=== PATIENT | male | born 1965 | race Hispanic/Latino ===

== ENCOUNTER 2018-09-08 10:51 | Day surgery (SDC) | payer OTHER ==
[~2018-09-08 10:51] MED LIST: ANCEF/STERILE WATER 2 GM/20 ML IV NR
--- NOTE | 2018-09-08 11:41 | Anesthesia Consultation ---
Anesthesia Consult and Med Hx Date of service: 09/08/18 - Airway Anesthetic Teeth Evaluation: Good ROM Head & Neck: Adequate Mental/Hyoid Distance: Adequate Mallampati Class: Class II Intubation Access Assessment: Possibly Difficult - Pulmonary Exam CTA: Yes - Cardiac Exam Cardiac Exam: RRR - Pre-Operative Health Status ASA Pre-Surgery Classification: ASA3 Proposed Anesthetic Plan: General - Pulmonary Hx Smoking: Yes (STOPPED X 30 YRS) Hx Asthma: No Hx Respiratory Symptoms: No COPD: No Hx Sleep Apnea: Yes (compliant with CPAP) - Cardiovascular System Hx Hypertension: No (takes lisinoprl for renal protection; last dose 09/07/18) Hx Heart Attack/AMI: No Hx Percutaneous Transluminal Coronary Angioplasty (PTCA): No Hx Cardia Arrhythmia: No - Central Nervous System Hx Seizures: No CVA: No Hx Back Pain: Yes (2/2 kidney stones) - Gastrointestinal Hx Gastroesophageal Reflux Disease: Yes (asymptomatic today) - Endocrine Hx Renal Disease: No Hx Liver Disease: Yes (fatty liver) Hx Insulin Dependent Diabetes: No Hx Non-Insulin Dependent Diabetes: Yes (last dose metformin 09/07/18) Hx Thyroid Disease: No - Other Systems Hx Obesity: Yes - Additional Comments Anesthesia Medical History Comments: No hx anesthetic complications.
--- NOTE | 2018-09-08 11:42 | Anesthesia Day of Surgery ---
Anesthesia Day of Surgery - Day of Surgery Patient Examined: Yes Patient H&P Reviewed: Yes Patient is NPO: Yes
[2018-09-08] MEDS ORDERED: LACTATED RINGERS 1,000 ML IV SCH (12:00)
[2018-09-08] MEDS ORDERED: VERSED IV NR (12:00)
[2018-09-08] MEDS ORDERED: XYLOCAINE MPF 2% ONE (12:59)
[2018-09-08] MEDS ORDERED: ZOFRAN ONE (12:59)
[2018-09-08] MEDS ORDERED: SUBLIMAZE ONE ×3 (12:59→14:06)
[2018-09-08] MEDS ORDERED: DIPRIVAN 10 MG/ML IV ONE (12:59)
[2018-09-08] MEDS ORDERED: DECADRON ONE (12:59)
[2018-09-08] MEDS ORDERED: OMNIPAQUE (300 MG) IR ONE (13:46)
[2018-09-08] MEDS ORDERED: WATER FOR IRRIG STERILE IR ONE (13:52)
--- NOTE | 2018-09-08 14:24 | Short Stay Summary ---
Short Stay Documentation Date of service: 09/08/18 - History H&P: obtained from office - Allergies and Medications Current Medications: Allergies No Known Allergies Allergy (Verified 09/07/18 11:55) Home Medications Medication Instructions Recorded Confirmed Last Taken Type AtorvaSTATin [Lipitor] 40 mg PO QHS 09/07/18 09/08/18 09/07/18 09:00 History Ciprofloxacin HCl [Cipro] 500 mg PO BID 09/07/18 09/07/18 Unknown History Cyanocobalamin (Vitamin B-12) 2,500 mcg PO DAILY 09/07/18 09/08/18 09/06/18 09:00 History [Vitamin B12] Flomax 0.4 mg PO DAILY 09/07/18 09/08/18 09/07/18 09:00 History Ketorolac [Toradol] 10 mg PO Q4HR PRN 09/07/18 09/08/18 09/05/18 09:00 History Lisinopril [Zestril] 10 mg PO DAILY 09/07/18 09/08/18 09/08/18 08:00 History Oxycodone HCl/Acetaminophen 1 each PO Q6HR PRN 09/07/18 09/08/18 09/07/18 14:00 History [Percocet 10/325 mg] glipiZIDE [Glipizide] 10 mg PO BID 09/07/18 09/08/18 09/07/18 09:00 History metFORMIN [Glucophage] 500 mg PO BID 09/07/18 09/08/18 09/07/18 09:00 History Active Medications Cefazolin Sodium (Ancef/Sterile Water 2 Gm/20 Ml) 2 gm IV PREOP NR Stop: 09/08/18 23:59 Fentanyl (Sublimaze) 50 mcg IV Q5MIN PRN PRN Reason: Pain , Severe (7-10) Stop: 09/08/18 18:00 Lactated Ringer's (Lactated Ringers) 1,000 mls @ 75 mls/hr IV DIRECT ALINE Last Admin: 09/08/18 11:45 Dose: 75 mls/hr Documented by: Midazolam HCl (Versed) 2 mg IV PREOP NR Stop: 09/08/18 23:59 - Brief post op/procedure progress note Date of procedure: 09/08/18 Pre-op diagnosis: rt mid ureteral stone Post-op diagnosis: other (impacted stone) Procedure: cysto, rt ureteroscopy stent, laser Anesthesia: GETA Surgeon: YAQUELIN KEATING Pathology: none Condition: stable - Hospital course Hospital course: cipro, percocet, postop info on chart - Disposition Condition at discharge: Stable Disposition: DC-01 TO HOME OR SELFCARE Short Stay Discharge Plan Follow up with: DR SUSIE [Other] - 7 Days
[2018-09-08] MEDS ORDERED: DILAUDID ONE (14:37)
[2018-09-08] MEDS ORDERED: PERCOCET 5/325 PO ONE (14:54)
[2018-09-08] MEDS: SUBLIMAZE IV PRN ×2 (15:00→15:27)
[2018-09-08 15:33] VITALS: BP 155/72
--- NOTE | 2018-09-08 16:01 | Post Anesthesia Evaluation ---
- Post Anesthesia Evaluation Patient Participated: Yes Airway Patent: Yes Stable Respiratory Function: Yes Nausea/Vomiting: No Temp > 96.8F: Yes Pain Manageable: Yes Adequeate Hydration: Yes Anesthesia Complications: No
--- NOTE | 2018-09-08 18:01 | Operative Report ---
PREOPERATIVE DIAGNOSIS: Right mid ureteral stone. POSTOPERATIVE DIAGNOSES: Right mid ureteral stone, right mid impacted ureteral stone. PROCEDURE: Cystoscopy, bilateral retrograde pyelograms, right rigid ureteroscopy, holmium laser lithotripsy, removal of small amounts of fragments, double-J stent placement (stage procedure). SURGEON: Jonatan Rodriguez MD ANESTHESIA: General. ESTIMATED BLOOD LOSS: Minimal. FLUIDS: Crystalloid. COMPLICATIONS: No complications. INDICATIONS: This patient is a 53-year-old gentleman seen in the office for right flank pain, has a history of diabetes and gout. He has a history of uric acid stones in the past and has undergone previous urologic procedures. We discussed options; due to his pain, he wanted to proceed with surgical intervention. DESCRIPTION OF PROCEDURE: The patient was taken to the operative suite, placed in a supine position. After adequate general anesthesia, placed in a dorsal lithotomy position, prepped and draped in a sterile fashion. Pancystourethroscopy was performed with a 22-[place]izen [place] Storz cystoscope, no urethral abnormalities. His prostate displayed some mild trilobar obstruction. Bladder, no tumors or stones were noted. Both ureteral orifices in normal position. Bilateral retrograde pyelograms were obtained with an 8 Citizen [place] Girard catheter and 8 mL of contrast. No filling defects or obstruction on the left. Right side had narrowing of the distal ureter, around the pelvic brim. There was dilation of ureter suggesting some type of abnormality. Two 0.035 Glidewires were placed. Rigid ureteroscopy was performed, significant edema could be appreciated. I was able to manipulate and see the yellow stone. Using a 200 micron holmium fiber starting at 4 german, lithotripsy was performed going up to 8 german with attempts to break the stone. There started to be some tedious bleeding and more edema, some of the fragments could be extracted, but it was clear. There was a residual large fragment that could not be removed. At this point, I felt it was prudent to stop. The ureteroscope was removed. A 6-[place]izen [place] 24 cm double-J stent with a short internal string was left indwelling. Bladder was drained. Rectal exam was benign. He was extubated and taken to the recovery room in stable condition. He has his antibiotics and pain medication. We will let him go home and stage this procedure, to come back in several weeks for reevaluation. JOB# [id number] DON/MIGUEL
--- NOTE | 2018-09-11 07:33 | Fluoroscopy Report ---
FLUOROSCOPY RETROGRADE UROGRAPHY: HISTORY: Right ureteral stone. FINDINGS: Fluoroscopy was provided by radiology during retrograde urography by the urologist. 9 fluoroscopic images were captured. Images demonstrate a large filling defect in a mid to distal right ureter near the level of S1 consistent with a stone. Subsequent images demonstrate right ureteral stent placement. The stone was removed with the use of a laser and basket per the operative note. Right ureteroscopy was performed. The left retrograde pyelogram was normal. IMPRESSION: Right ureteral stone removal. Right ureteral stent placement.
== END 2018-09-08 10:52 | disposition home or self-care (01) ==
LOC: OR 10:51
PROVIDERS: ATTEND Urology
DX: N20.1 Calculus of ureter (principal); G43.909 Migraine, unspecified, not intractable, without status migrainosus; E78.00 Pure hypercholesterolemia, unspecified; K21.9 Gastro-esophageal reflux disease without esophagitis; E11.9 Type 2 diabetes mellitus without complications; G47.33 Obstructive sleep apnea (adult) (pediatric); Z79.899 Other long term (current) drug therapy; E66.9 Obesity, unspecified; Z68.41 Body mass index [BMI] 40.0-44.9, adult; Z79.84 Long term (current) use of oral hypoglycemic drugs; Z87.891 Personal history of nicotine dependence
CPT/HCPCS: 52356; 74420; 82962; A4217; C1758; C1769; C2617; J0690; J1170; J2405; J2704; J3010; J7120; Q9967; J1100; J2250

== ENCOUNTER 2018-09-18 06:52 | Day surgery (SDC) | payer OTHER ==
[2018-09-18] MEDS ORDERED: PEPCID IV NR (07:40)
[2018-09-18] MEDS ORDERED: LACTATED RINGERS 1,000 ML IV SCH (07:41)
[2018-09-18] MEDS ORDERED: VERSED IV NR (08:00)
--- NOTE | 2018-09-18 08:52 | Anesthesia Consultation ---
Anesthesia Consult and Med Hx Date of service: 09/18/18 - Airway Anesthetic Teeth Evaluation: Good ROM Head & Neck: Adequate (has c5/c6 cervical spine pain; will follow-up with ortho but FROM with minimal discomfort) Mental/Hyoid Distance: Adequate Mallampati Class: Class III Intubation Access Assessment: Probably Good - Pulmonary Exam CTA: Yes - Cardiac Exam Cardiac Exam: RRR - Pre-Operative Health Status ASA Pre-Surgery Classification: ASA3 Proposed Anesthetic Plan: General - Pulmonary Hx Smoking: Yes (STOPPED X 30 YRS) Hx Asthma: No Hx Respiratory Symptoms: No COPD: No Hx Sleep Apnea: Yes (compliant with CPAP) - Cardiovascular System Hx Hypertension: No (takes lisinoprl for renal protection) Hx Heart Attack/AMI: No Hx Percutaneous Transluminal Coronary Angioplasty (PTCA): No Hx Cardia Arrhythmia: No - Central Nervous System Hx Seizures: No CVA: No Hx Back Pain: Yes (2/2 kidney stones) - Gastrointestinal Hx Gastroesophageal Reflux Disease: Yes (asymptomatic today) - Endocrine Hx Renal Disease: No Hx Liver Disease: Yes (fatty liver) Hx Insulin Dependent Diabetes: No Hx Non-Insulin Dependent Diabetes: Yes (last dose metformin 09/07/18) Hx Thyroid Disease: No - Other Systems Hx Cancer: No Hx Obesity: Yes - Additional Comments Anesthesia Medical History Comments: 53 y.o.m. ASA3 w/ well-controlled DM (hgA1c 6.5), HTN on lisinopril, CPAP compliant sleep apnea
[2018-09-18] MEDS ORDERED: SUBLIMAZE IV PRN (08:53)
[2018-09-18] MEDS ORDERED: ZOFRAN IV PRN (08:53)
[2018-09-18] MEDS ORDERED: TORADOL IV PRN (08:53)
--- NOTE | 2018-09-18 08:53 | Anesthesia Day of Surgery ---
Anesthesia Day of Surgery - Day of Surgery Patient Examined: Yes Patient H&P Reviewed: Yes Patient is NPO: Yes Beta Blockers: No Cardiac Clearance: Yes Pulmonary Clearance: Yes Rafi's Test: N/A (HPI reviewed, PE performed; all questions and concerns answered)
[2018-09-18] MEDS ORDERED: DIPRIVAN 10 MG/ML IV ONE (10:22)
[2018-09-18] MEDS ORDERED: SUBLIMAZE ONE ×2 (10:22→11:34)
[2018-09-18] MEDS ORDERED: XYLOCAINE MPF 2% ONE (10:22)
[2018-09-18] MEDS ORDERED: DILAUDID ONE (10:58)
[2018-09-18] MEDS ORDERED: WATER FOR IRRIG STERILE IR ONE (11:00)
[2018-09-18] MEDS ORDERED: OMNIPAQUE (300 MG) IR ONE (11:00)
[2018-09-18] MEDS ORDERED: NEO SYNEPHRINE/NS Syringe(OR USE) IV ONE (11:27)
[2018-09-18] MEDS ORDERED: ZOFRAN ONE (11:38)
[2018-09-18] MEDS ORDERED: DECADRON ONE (11:38)
[2018-09-18] MEDS ORDERED: TORADOL ONE (11:40)
--- NOTE | 2018-09-18 11:46 | Short Stay Summary ---
Short Stay Documentation Date of service: 09/18/18 - History H&P: obtained from office - Allergies and Medications Current Medications: Allergies No Known Allergies Allergy (Verified 09/07/18 11:55) Home Medications Medication Instructions Recorded Confirmed Last Taken Type AtorvaSTATin [Lipitor] 40 mg PO QHS 09/07/18 09/18/18 09/17/18 History Ciprofloxacin HCl [Cipro] 500 mg PO BID 09/07/18 09/15/18 Unknown History Cyanocobalamin (Vitamin B-12) 2,500 mcg PO DAILY 09/07/18 09/18/18 09/11/18 History [Vitamin B12] Flomax 0.4 mg PO DAILY 09/07/18 09/18/18 09/17/18 History Ketorolac [Toradol] 10 mg PO Q4HR PRN 09/07/18 09/18/18 09/11/18 History Lisinopril [Zestril] 10 mg PO DAILY 09/07/18 09/18/18 09/17/18 History Oxycodone HCl/Acetaminophen 1 each PO Q6HR PRN 09/07/18 09/18/18 09/17/18 History [Percocet 10/325 mg] glipiZIDE [Glipizide] 10 mg PO BID 09/07/18 09/18/18 09/17/18 History metFORMIN [Glucophage] 500 mg PO BID 09/07/18 09/18/18 09/17/18 History Active Medications Cefazolin Sodium (Ancef/Sterile Water 2 Gm/20 Ml) 2 gm IV PREOP NR Stop: 09/18/18 23:59 Famotidine (Pepcid) 20 mg IV PREOP NR Stop: 09/18/18 23:59 Last Admin: 09/18/18 08:06 Dose: 20 mg Documented by: Fentanyl (Sublimaze) 50 mcg IV Q5MIN PRN PRN Reason: Pain , Severe (7-10) Stop: 09/18/18 20:00 Lactated Ringer's (Lactated Ringers) 1,000 mls @ 100 mls/hr IV DIRECT ALINE Stop: 09/18/18 23:59 Last Admin: 09/18/18 08:03 Dose: 100 mls/hr Documented by: Ketorolac Tromethamine (Toradol) 30 mg IV ONCE PRN PRN Reason: Pain, Moderate (4-6) Stop: 09/18/18 12:00 Midazolam HCl (Versed) 2 mg IV PREOP NR Stop: 09/18/18 23:59 Last Admin: 09/18/18 08:10 Dose: 2 mg Documented by: Ondansetron HCl (Zofran) 4 mg IV ONCE PRN PRN Reason: Nausea And Vomiting Stop: 09/18/18 12:00 - Brief post op/procedure progress note Date of procedure: 09/18/18 Pre-op diagnosis: impacted rt ureteral stone Post-op diagnosis: same Procedure: cysto, rt ureteroscopy,laser, basket stone, stent with short internal string Anesthesia: ABIDA Surgeon: YAQUELIN KEATING Pathology: none Condition: stable - Hospital course Hospital course: cipro & percocet on chart - Disposition Condition at discharge: Stable Disposition: DC-01 TO HOME OR SELFCARE Short Stay Discharge Plan Follow up with: [facility] [Primary Care Provider] - 7 Days
[2018-09-18 12:56] VITALS: BP 117/80
--- NOTE | 2018-09-18 13:23 | XRay Report ---
AP ABDOMEN: HISTORY: Right ureteral stone. The abdominal gas pattern is unremarkable. No masses or organomegaly is identified and there is no gross evidence of free air or fluid. No significant soft tissue calcifications are noted. A right ureteral stent is in place. IMPRESSION: Unremarkable abdomen.
--- NOTE | 2018-09-18 13:54 | Operative Report ---
PREOPERATIVE DIAGNOSIS: Impacted right ureteral stone, status post stent placement. POSTOPERATIVE DIAGNOSES: Impacted right ureteral stone, status post stent placement. PROCEDURE: Cystoscopy, right ureteroscopy, holmium laser lithotripsy, basket stone extraction, double-J stent exchange (6-[place] 24 cm with a short internal string) (stage procedure). SURGEON: Jonatan Rodriguez MD ANESTHESIA: General. ESTIMATED BLOOD LOSS: Minimal. FLUIDS: Crystalloid. COMPLICATIONS: No complications. INDICATIONS: This patient is a 53-year-old gentleman known to our service with a right distal stone. He had a procedure approximately 2 weeks ago for stone extraction. However, he had significant edema and scarring and did not want to perforate the ureter and I therefore staged the procedure. He presents now for a second look. DESCRIPTION OF PROCEDURE: The patient was taken to the operative suite and placed in the supine position. After adequate general anesthesia, he was placed in a dorsal lithotomy position and prepped and draped in a sterile fashion. Pancystourethroscopy was performed with a 22-[place] Storz cystoscope. No acute urethral problems. Prostate minimally obstructing. Bladder, no tumors or stones. Ureteral orifice with stent in place. The stent was engaged with a basket. The stone could not be visualized on x-ray, either due to uric acid in nature. The patient has a history of uric acid stones. It may also be due to his increased body habitus. A grasper was used to engage the stent. It was pulled out to the meatus. A 0.035 Glidewire was advanced under fluoroscopic guidance into the renal pelvis, rigid ureteroscopy up to the stone. There was still some edema. A second wire was advanced into the scope to advance the scope up to the stone. A yellow colored stone could be appreciated. 200 micron holmium laser fiber was used starting at 4 german and going up to 8 german. Adequate fragmentation could be appreciated. Residual fragment was engaged and removed with a 3-[place] Carisa basket and will be sent for routine pathologic evaluation. A 6-[place] 24 cm double-J stent was left indwelling with a short internal string. He was extubated and taken to recovery room. He will go home on Percocet and Cipro. JOB# [id number] [facility]
== END 2018-09-18 06:53 | disposition home or self-care (01) ==
LOC: OR 06:52
PROVIDERS: ATTEND Urology
DX: N20.1 Calculus of ureter (principal); E78.00 Pure hypercholesterolemia, unspecified; E11.9 Type 2 diabetes mellitus without complications; I10 Essential (primary) hypertension; G47.30 Sleep apnea, unspecified; K21.9 Gastro-esophageal reflux disease without esophagitis; E66.9 Obesity, unspecified; Z79.899 Other long term (current) drug therapy; Z79.84 Long term (current) use of oral hypoglycemic drugs; Z87.891 Personal history of nicotine dependence; Z68.41 Body mass index [BMI] 40.0-44.9, adult
CPT/HCPCS: 52356; 74018; 82962; A4217; C1726; C1758; C1769; C2617; J0690; J1100; J1170; J1885; J2250; J2370; J2405; J2704; J3010; J7120